=== PATIENT | male | born 1985 | race Caucasian/White ===

== ENCOUNTER 2016-10-29 14:33 | Emergency (ER) | payer BC ==
[2016-10-29] MEDS ORDERED: Lidocaine 1% 30 ML SDV INJECT ONE (15:03)
[2016-10-29 15:08] VITALS: BP 147/62
[2016-10-29] MEDS ORDERED: Take Home: Amoxicillin/Clavulanate K 875-125 MG Tab, 2 Tab Pack PO ONE (15:08)
[2016-10-29] MEDS ORDERED: Diphtheria,Pertussis(Acell),Tetanus Vaccine 0.5 ML Syringe IM ONE (15:11)
[2016-10-29] MEDS ORDERED: cefTRIAXone 1 GM Vial IM ONE (15:34)
[2016-10-29] MEDS ORDERED: cefTRIAXone 1 GM, Lidocaine 1% 2.1 ML IM ONE ×2 (15:41)
--- NOTE | 2016-10-30 00:31 | ER ---
Date of Service: 10/29/2016 SUBJECTIVE: Sreekanth presents to the emergency room with complaints of laceration to the fifth digit of his right and left hand. The laceration that he sustained to the left digit is much deeper. The patient is unsure what time this happened or specifically what happened to cause the laceration. The patient states that it was approximately 12 hours. Based on the patient's timeline, reconstruction with other individuals, it has been approximately 12 hours since the incident happened. The patient states that his tetanus is not up-to-date. He denies any injury other than what is isolated to his fifth digit of his right and his left hand. PAST MEDICAL HISTORY: Alcohol abuse. He states that he drinks approximately 15 drinks 5 days a week. MEDICATIONS: None. ALLERGIES: NKDA. REVIEW OF SYSTEMS: General: Denies any fever or chills. HEENT: No sore throat, rhinorrhea, or congestion. Respiratory: No shortness breath. Cardiac: Denies any substernal chest pain. Musculoskeletal: The patient has approximately 3 cm U-shaped laceration to the pad of the fifth digit of the left hand. He also has a very superficial subcentimeter flap-type laceration to the pad of the fifth digit of the right hand. No obvious involvement of the underlying structures of the finger. The laceration to the left hand is very open and gaping with a large amount of dried subcutaneous tissue outside of the laceration. He does have normal range of motion to the digit. Neurovascular: Circulation, sensation, and motor function are all within normal limits in the distal portion of both digits. EMERGENCY DEPARTMENT COURSE: The laceration to of the right hand was cleansed with normal saline and chlorhexidine and a bandage was applied. The laceration to the fifth digit of the left hand was irrigated with 1 L of normal saline and chlorhexidine. Following this, the patient's hand was prepped and draped in the usual sterile fashion. A digital block was placed in the base of the finger using 1% lidocaine. After adequate anesthesia was obtained, the finger was further cleansed with Betadine. The subcutaneous that issue and redundant skin had to be excised from the laceration in order to allow for closure of the laceration. A total of 8 interrupted 4-0 nylon sutures were used to close the laceration. The patient tolerated this well. He remained stable in my care in the emergency room. ASSESSMENT: A 3-cm laceration to the distal portion of the left little finger. PLAN: The patient will be discharged. Telfa was placed with bacitracin to the laceration. Tube gauze was subsequently used to hold this in place. The patient was placed in a finger splint to decrease the possibility of movement of the finger and subsequent dehiscence of the sutures. We will have him follow up in the clinic on Sunday or of next week for wound recheck. I did start him on Augmentin 875 mg 1 twice daily for 10 days. All questions were answered. MWK: 10/29/2016 18:15:19 MODL: 10/30/2016 00:26:17 /[id number]
--- NOTE | 2016-11-01 08:13 | ER ---
Date of Service: 10/29/2016 ADDENDUM: PHYSICAL EXAMINATION: He has a 3 cm U-shaped laceration to the pad of the 5th digit of the left hand. No damage to the underlying structures of the finger. Neurovascular, circulation, sensation, and motor function are all within normal limits in the distal portion of the extremity. MWK: 11/01/2016 06:06:51 MODL: 11/01/2016 06:27:33 /[id number]
== END 2016-10-29 16:20 | disposition home or self-care (01) ==
LOC: VM.ED 14:33
DX: S61.217A Laceration without foreign body of left little finger without damage to nail, initial encounter (principal); S61.216A Laceration without foreign body of right little finger without damage to nail, initial encounter; Z23 Encounter for immunization; W26.9XXA Contact with unspecified sharp object(s), initial encounter
CPT/HCPCS: 12002; 90715; 96372; 99283; A9270; J0696